=== PATIENT | male | born 1950 | race Caucasian/White ===

== ENCOUNTER 2018-03-14 10:46 | Observation (INO) ==
[2018-03-14] MEDS ORDERED: ULTRAM PO PRN (13:13)
[2018-03-14] MEDS ORDERED: HumuLIN R SUBCUT PRN (13:13)
[2018-03-14 13:54] LABS: BASOPHILS # (AUTO) 0.1 X10^3/uL (0.0-0.1); BASOPHILS % (AUTO) 0.7 % (0.2-1.0); EOSINOPHILS # (AUTO) 0.1 x10^3/uL (0.0-0.2); EOSINOPHILS % (AUTO) 1.8 % (0.9-2.9); HEMATOCRIT 37.8 % (42.0-54.0); HEMOGLOBIN 13.6 g/dL (13.5-18.0); LYMPHOCYTES % (AUTO) 25.5 % (21.0-51.0); MEAN CORPUSCULAR HEMOGLOBIN 30.8 pg (27.0-34.0); MEAN CORPUSCULAR HGB CONC 35.9 g/dL (33.0-35.0); MEAN CORPUSCULAR VOLUME 85.7 fL (80.0-100.0); MEAN PLATELET VOLUME 9.7 fL (7.4-11.0); MONOCYTES # (AUTO) 0.5 x10^3/uL (0.3-0.8); MONOCYTES % (AUTO) 6.9 % (0.0-13.0); NEUTROPHILS # (AUTO) 5.1 x10^3/uL (2.2-4.8); NEUTROPHILS % (AUTO) 65.1 % (42.0-75.0); PLATELET COUNT 211 X10^3/uL (150.0-450.0); RED CELL DISTRIBUTION WIDTH 14.9 % (11.6-16.5); WHITE BLOOD COUNT 7.8 X10^3/uL (3.6-10.0)
[2018-03-14] MEDS: NS 1000 ML 1,000 ML IV SCH (14:00)
[2018-03-14 14:16] LABS: ALANINE AMINOTRANSFERASE 36 Units/L (12-78); ALBUMIN 3.8 g/dL (3.4-5.0); ALKALINE PHOSPHATASE 128 Units/L (46-116); ASPARTATE AMINO TRANSFERASE 25 Units/L (15-37); BLOOD UREA NITROGEN 13 mg/dL (7-18); CALCIUM 8.7 mg/dL (8.5-10.1); CARBON DIOXIDE 32.1 mmol/L (21-32); CHLORIDE 104 mmol/L (98-107); CKMB % 1.3 % (<4); COR NA(FOR HYPERGLY) 144 mmol/L (136-145); CREATINE KINASE 238 Units/L (39-308); CREATININE 1.22 mg/dL (0.70-1.30); SODIUM 143 mmol/L (136-145); TOTAL PROTEIN 7.1 g/dL (6.4-8.2); TROPONIN I < 0.02 ng/mL (0-1.5); eGFR NON BLACK RACES > 60 (>60)
[2018-03-14 16:33] VITALS: BMI 29.0
[2018-03-14] MEDS ORDERED: GLUCOPHAGE ONE (17:18)
[2018-03-14] MEDS: GLUCOPHAGE PO SCH (17:20)
--- NOTE | 2018-03-14 17:30 | VAS ---
Exam: Carotid Doppler exam History: 67-year-old male with syncope. Evaluate for possible carotid artery stenosis. Comparison: None Findings: Mild degree of plaque is present in both carotid systems. On the right, peak systolic velocities in cm/sec of the right internal and common carotid arteries measure 73 and 57. Greatest ICA/CCA ratio on the right is 1.28 On the left, peak systolic velocities in cm / sec of the left internal and common carotid arteries measure 83 and 74 respectively. Greatest ICA/CCA ratio on the left is 1.12 Antegrade flow is documented in patent vertebral arteries bilaterally. Impression: No hemodynamically significant carotid stenosis is seen on either side Reported By:
--- NOTE | 2018-03-14 17:34 | RAD ---
Chest AP portable Indication: Syncope Comparison: 07/19/2017 Findings: Heart size upper limits of normal for technique. Coronary artery calcifications noted. There is no pneumothorax or effusion. No overt edema or consolidation seen. Impression: Enlarged heart without new acute chest process otherwise. Reported By:
[2018-03-14 17:37] LABS: CKMB % 1.2 % (<4); CREATINE KINASE 213 Units/L (39-308); CREATINE KINASE MB 2.5 ng/mL (0-4.0); TROPONIN I < 0.02 ng/mL (0-1.5)
[2018-03-14 19:57] LABS: BILIRUBIN,URINE NEGATIVE (NEGATIVE); BLOOD/HEMOGLOBIN,URINE NEGATIVE (NEGATIVE); GLUCOSE, URINE 4+ (NEGATIVE); KETONES,URINE NEGATIVE (NEGATIVE); LEUKOCYTE ESTERASE ,URINE NEGATIVE (NEGATIVE); NITRITES,URINE NEGATIVE (NEGATIVE); PROTEIN,URINE NEGATIVE (NEGATIVE); UROBILINOGEN,URINE NORMAL (NORMAL)
[2018-03-14 19:58] LABS: APPEARANCE,URINE CLEAR (CLEAR); COLOR,URINE YELLOW (YELLOW)
[2018-03-14] MEDS ORDERED: SNACK - Diabetic Appropriate PO SCH (20:00)
[2018-03-14] MEDS ORDERED: KLOR-CON PO PRN (20:24)
[2018-03-14] MEDS ORDERED: POTASSIUM CHL 60 MEQ/NS 0.45% 500 ML IV PRN (20:24)
[2018-03-14] MEDS ORDERED: POTASSIUM CHLORIDE LIQ 20 MEQ UDC PO PRN (20:24)
[2018-03-14] MEDS ORDERED: POTASSIUM CHL 40 MEQ/NS 0.45% 500 ML IV PRN (20:24)
[2018-03-14] MEDS ORDERED: MICRO K EXTEN CAP 10 MEQ PO PRN (20:24)
[2018-03-14] MEDS ORDERED: K-RIDER 10 MEQ/NS 100 ML 10 MEQ/100 ML BAG IV PRN (20:24)
[2018-03-14] MEDS ORDERED: ZESTRIL TAB 20 MG ONE (20:31)
[2018-03-14] MEDS: ZESTRIL TAB 20 MG PO SCH (20:57)
[2018-03-14] MEDS: K-DUR TAB 20 MEQ PO PRN (20:58)
[2018-03-14] MEDS ORDERED: LIPITOR TAB 40 MG PO SCH (21:00)
[2018-03-14 21:45] LABS: CKMB % 1.2 % (<4); CREATINE KINASE 200 Units/L (39-308); CREATINE KINASE MB 2.3 ng/mL (0-4.0); TROPONIN I < 0.02 ng/mL (0-1.5)
--- NOTE | 2018-03-14 22:06 | MRI ---
MRA HEAD WITHOUT CONTRAST CLINICAL HISTORY: 67-year-old male with syncopal episode and headache. COMPARISONS: None. TECHNIQUE: 3-D time of flight magnetic resonance angiographic images of the [place] were obtained and presented as maximum intensity projection images in rotating format. FINDINGS: Right dominant vertebral artery. The basilar artery is normal in appearance and gives off normal bilateral superior cerebellar and right posterior cerebral arteries. origin left [employer]. The internal carotid arteries are normal from the distal cervical segments to the carotid terminus. Large caliber left posterior communicating artery with right posterior communicating artery not visualized. The middle and anterior cerebral arteries are normal in course and caliber. There is a small caliber anterior communicating artery. IMPRESSION: 1. No aneurysm, high-grade stenosis, complete occlusion, dissection or vascular malformation. 2. origin left [employer]. Reported By:
--- NOTE | 2018-03-14 22:09 | MRI ---
MRI BRAIN WITHOUT CONTRAST CLINICAL HISTORY: 67-year-old male with syncopal episode and headache. COMPARISON: None. TECHNIQUE: Multiplanar, multisequence MR images of the brain were obtained without contrast. FINDINGS: There is no evidence of diffusion restriction. The craniocervical junction is normal. Pituitary and optic nerve complex are normal. Scattered punctate T2 FLAIR signal hyperintensities are present within the periventricular and supraventricular white matter that are nonspecific in appearance but most likely to represent microvascular white matter ischemic changes. Small punctate focus of chronic ischemic insult and encephalomalacia adjacent to the right frontal horn. Normal signal characteristics and morphology are demonstrated within the cerebral cortex, corpus callosum, [place] nuclei, brainstem and cerebellum. The major vascular flow voids, to include the dural venous sinuses, are intact. No abnormal susceptibility on gradient imaging. Age related cortical volume loss is present, with commensurate sulcal and ventricular prominence. The basilar cisterns are normal. The orbits and globes are within normal limits. The paranasal sinuses, tympanic cavities and mastoids are clear. IMPRESSION: 1. No acute ischemic or hemorrhagic insult. 2. Mild, chronic microvascular white matter ischemic disease and associated volume loss. Reported By:
[2018-03-15] MEDS: NS 1000 ML 1,000 ML IV SCH (04:09)
[2018-03-15 05:55] LABS: BASOPHILS % (AUTO) 0.7 % (0.2-1.0); EOSINOPHILS # (AUTO) 0.1 x10^3/uL (0.0-0.2); EOSINOPHILS % (AUTO) 2.1 % (0.9-2.9); HEMATOCRIT 34.4 % (42.0-54.0); HEMOGLOBIN 12.2 g/dL (13.5-18.0); LYMPHOCYTES # (AUTO) 2.1 X10^3/uL (1.3-2.9); LYMPHOCYTES % (AUTO) 30.2 % (21.0-51.0); MEAN CORPUSCULAR HEMOGLOBIN 30.5 pg (27.0-34.0); MEAN CORPUSCULAR HGB CONC 35.6 g/dL (33.0-35.0); MEAN CORPUSCULAR VOLUME 85.5 fL (80.0-100.0); MEAN PLATELET VOLUME 9.8 fL (7.4-11.0); MONOCYTES # (AUTO) 0.5 x10^3/uL (0.3-0.8); MONOCYTES % (AUTO) 7.5 % (0.0-13.0); NEUTROPHILS # (AUTO) 4.1 x10^3/uL (2.2-4.8); NEUTROPHILS % (AUTO) 59.5 % (42.0-75.0); PLATELET COUNT 194 X10^3/uL (150.0-450.0); RED BLOOD COUNT 4.02 X10^6/uL (4.7-6.0); RED CELL DISTRIBUTION WIDTH 14.7 % (11.6-16.5); WHITE BLOOD COUNT 6.9 X10^3/uL (3.6-10.0)
[2018-03-15 06:16] LABS: ALANINE AMINOTRANSFERASE 29 Units/L (12-78); ALBUMIN 3.2 g/dL (3.4-5.0); ALKALINE PHOSPHATASE 109 Units/L (46-116); ASPARTATE AMINO TRANSFERASE 17 Units/L (15-37); BLOOD UREA NITROGEN 10 mg/dL (7-18); CARBON DIOXIDE 29.4 mmol/L (21-32); CHLORIDE 106 mmol/L (98-107); COR NA(FOR HYPERGLY) 145 mmol/L (136-145); CREATININE 1.04 mg/dL (0.70-1.30); MAGNESIUM 1.7 mg/dL (1.7-2.9); SODIUM 143 mmol/L (136-145); eGFR NON BLACK RACES > 60 (>60)
[2018-03-15] MEDS ORDERED: GLUCOPHAGE ONE (06:19)
[2018-03-15] MEDS: GLUCOPHAGE PO SCH (06:23)
[2018-03-15 06:24] LABS: CALCIUM 8.3 mg/dL (8.5-10.1); COR CA(FOR HYPOALB) 8.9 mg/dL (8.5-10.1)
[2018-03-15] MEDS: K-DUR TAB 20 MEQ PO PRN (06:36)
--- NOTE | 2018-03-15 07:43 | RAD ---
HISTORY: Syncope Study chest AP portable Comparison: None Findings: The heart is within normal limits in size. The court are normal. The lung carter are clear. The bony thorax is unremarkable. IMPRESSION: Lungs clear Reported By:
[2018-03-15] MEDS ORDERED: ZESTRIL TAB 20 MG ONE (08:42)
[2018-03-15] MEDS: ZESTRIL TAB 20 MG PO SCH (08:50)
[2018-03-15] MEDS ORDERED: PLAVIX PO SCH (09:00)
[2018-03-15] MEDS ORDERED: NORVASC TAB 10 MG PO SCH (09:00)
[2018-03-15] MEDS ORDERED: COREG TAB 12.5 MG PO SCH (10:08)
[2018-03-15 12:17] VITALS: BP 168/81
--- NOTE | 2018-03-25 18:07 | DR.CARTERS ---
Short Stay Summary - Short Stay Summary for: Short Stay Summary for Date of:: 03/14/18 - Admission Date Date of Admission: 03/14/18 - Discharge Date Discharge Date: 03/15/18 - Admission Diagnoses (1) Syncope Status: Acute (2) Weakness Status: Acute (3) Dizziness Status: Acute - Hospital Course Hospital Course: WAS SEEN IN THE OFFICE ON 03/14/2018 FOR COMPLAINTS OF NEAR SYNCOPE AND HYPERGLYCEMIA. HE REPORT THAT HE BEGAN WITH DIZZINESS, WEAKNESS, AND ALMOST PASSED OUT APPROXIMATELY TWO HOURS PRIOR TO BEING SEEN. HIS VITALS IN THE OFFICE WERE 98.2-18-96-98%-150/74. HE WAS ADMITTED TO THE [facility] FOR FURTHER EVALUATION AND TREATMENT. A H&P WAS COMPLETED PRIOR TO ADMISSION. ON ADMISSION, LABS WERE OBTAINED. ABNORMAL LAB VALUES INCLUDE THE FOLLOWING: RBC 4.40, HCT 37.8, POTASSIUM 3.3, CARBON DIOXINDE 32.1, GLUCOSE 141. ALK PHOS 128. CARDIAC ENZYMES WITHIN NORMAL LIMITS. EKG REVEALED SINUS RHYTHM WITH HR 57. A CAROTIC DOPPLER WAS OBTAINED AND REVEALED: NO HEMODYNAMICALLTY SIGNIFICANT CAROTID STENOSIS SEEN ON EITHER SIDE. CHEST XRAY REVEALED ENLARGED HEART WITHOUT NEW ACUTE CHEST PROCESS. BRAIN MRI REVEALED: NO ACUTE ISCHEMIC OR HEMORRHAGIC INSULT. MILD, CHRONIC MICROVASCULAR WHITE MATTER ISCHEMIC DISEASE AND ASSOCIATED VOLUME LOSS. BRAIN MRA REVEALED: NO ANEURYSM, HIGH GRADE STENOSIS, COMPLETE OCCLUSION, DISSECTION, OR VASCULAR MALFORMATION. 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 ECHO REVEALED AN EJECTION FRACTION OF 64% WITH MILD LVH. WE PLANNED TO CONTINUE TO MONITOR SERIAL CARDIAC ENZYMES AND EKGS AND FOLLOW UP WITH AM LABS. THE FOLLOWING MORNING, PATIENT WAS ALERT AND ORIENTED, LYING IN BED ON MORNING ROUNDS. HE REPORTS IMPROVEMENT IN SYMPTOMS AND IS FEELING WELL. HE DENIESS DIZZINESS, WEAKNESS, OR CHEST PAIN. HIS VITALS UPON ROUNDS WERE 98.6-80-20-97%-175/86. POTASSIUM DECREASED AT 3.0 AND GLUCOSE SLIGHTLY ELEVATED AT 167, OTHERWISE, HE IS HEMODYNAMICALLY STABLE. EKGS WITHOUT CHANGES AND CARDIAC ENZYMES NORMAL. WE PLANNED FOR DISCHARGE. DISCHARGE INSTRUCTIONS DISCUSSED WITH PATIENT AND SPOUSE. HE WAS GIVEN A NEW PRESCRIPTION FOR COREG 12.5MG PO BID AND TOLD TO DISCONTINUE THE 25MG THAT HIS WAS PREVIOUSLY TAKING. HE WAS INSTRUCTED TO CONTINUE ALL OTHER MEDICATIONS. WE WILL SET HIM UP FOR OUTPATIENT CARDIOLITE. TIEN FROM THE OFFICE WILL CONTACT HIM. HE WAS ALSO INSTRUCTED TO FOLLOW UP IN THE OFFICE WITH FLORI ON 03/19/18. HE VERBALIZED UNDERSTANDING OF ALL ORDERS. HE WAS DISCHARGED HOME IN STABLE CONDITION WITH SPOUSE. - Discharge Medications Discharge Medications: Home Medication List amlodipine 1 tab PO DAILY 03/14/18 [History] aspirin [Aspirin Low Dose] 1 tab PO DAILY 03/14/18 [History] atorvastatin 1 tab PO DAILY 03/14/18 [History] clopidogrel 1 tab PO DAILY 03/14/18 [History] hydrochlorothiazide 1 tab PO DAILY 03/14/18 [History] lisinopril 1 tab PO BID 03/14/18 [History] metformin 1 tab PO BID 03/14/18 [History] potassium chloride 1 tab PO DAILY 03/14/18 [History] tramadol 1 tab PO DAILY PRN 03/14/18 [History] carvedilol [Coreg] 12.5 mg PO BID #60 tab 03/15/18 [Rx] Prescriptions: carvedilol [Coreg] Isacc [place] - Discharge Plan Disposition: HOME, SELF-CARE Condition: Stable Prescriptions: carvedilol [Coreg] 12.5 mg PO BID #60 tab - Follow up/Referrals Follow up/Referrals: FLORI CALLE [Nurse Practitioner] - 03/19/18 1:40 pm - Instructions Instructions: Coronary Artery Disease, Male, Type 2 Diabetes Mellitus, Diag nosis, Adult, How to Take Your Blood Pressure, [id number], Hypertension, [id number] Additional Instructions: Diet as tolerated. Activity as tolerated. keep a log of blood pressures and blood sugars prior to taking medications until follow up with Flori. Forms: Patient Portal
== END 2018-03-15 16:05 | disposition home or self-care (01) ==
LOC: MED/SURG
PROVIDERS: ADMIT Internal Medicine; ATTEND Internal Medicine
DX: E11.65 Type 2 diabetes mellitus with hyperglycemia; R51 Headache; Z79.01 Long term (current) use of anticoagulants; I25.10 Atherosclerotic heart disease of native coronary artery without angina pectoris; R90.82 White matter disease, unspecified; R55 Syncope and collapse; I10 Essential (primary) hypertension; R42 Dizziness and giddiness; Z79.899 Other long term (current) drug therapy; R94.31 Abnormal electrocardiogram [ECG] [EKG]; R53.1 Weakness
CPT/HCPCS: 36415; 70544; 70551; 71010; 71045; 80053; 81003; 82550; 82553; 83735; 84132; 84484; 85025; 93005; 93306; 93880; 94760; 96367; 96374; A4222; G0378; J7030